=== PATIENT | male | born 1970 | race Caucasian/White ===

== ENCOUNTER 2020-05-23 09:27 | Outpatient (CLI) | payer OTHER, SELFPAY | END 2020-05-23 09:28 | disposition home or self-care (01) | LOC: ANHCOVIDVC 09:27 | PROVIDERS: PCP Internal Medicine | DX: Z23 Encounter for immunization (principal) | CPT/HCPCS: 0001A; 91300 ==

== ENCOUNTER 2020-06-13 09:49 | Outpatient (CLI) | payer OTHER, SELFPAY | END 2020-06-13 09:50 | disposition home or self-care (01) | PROVIDERS: PCP Internal Medicine | DX: Z23 Encounter for immunization (principal) | CPT/HCPCS: 0002A; 91300 ==

== ENCOUNTER 2023-09-26 17:05 | Emergency (ER) | payer BC, SELFPAY ==
[2023-09-26 17:21] VITALS: BP 140/82; PULSE 85; RESP 16; TEMP 36.9; O2SAT 100
--- NOTE | 2023-09-26 17:47 | ED.GENADULT ---
HPI - General Adult General Chief complaint: Abdominal Pain Stated complaint: Abdominal Pain Time Seen by Provider: 09/26/23 17:36 Source: patient, RN notes reviewed and old records reviewed Mode of arrival: ambulatory Limitations: no limitations History of Present Illness HPI narrative: 53 year old male who presents to [facility] with complaints of upper epigastric burning for the past month with no nausea or vomiting. Patient reports that since about 0400 today he has had increased epigastric burning and has been taking Pepto Bismol without relief of his symptoms. Patient reports that he has been under a lot of stress lately; his was just recently diagnosed with cancer andthey have down syndrome child at home. Patient denies any shortness of breath or any radiation of pain or any episodes of diaphoresis.Patient is daily tobacco user. MD complaint: abdominal epigastric burning Onset (ago): month(s) (1 month with increased symptoms today.) Location: abdomen (epigastric) Radiation: non-radiation Severity scale (1-10): 4 Quality: burning Treatments prior to arrival: other (Pepto Bismol) Related Data Allergies Allergy/AdvReac Type Severity Reaction Status Date / Time No Known Allergies Allergy Verified 06/13/20 09:52 Review of Systems Review of Systems: CONSTITUTIONAL: Denies fever, chills, or sweats. ENT: Denies rhinorrhea, congestion, sore throat, or otalgia. CARDIOVASCULAR: Denies chest pain, palpitations, or edema. RESPIRATORY: Denies cough or dyspnea. GASTROINTESTINAL: Reports epigastric abdominal pain described as burning, no, nausea, vomiting, diarrhea. GENITOURINARY: Denies dysuria or hematuria. SKIN: Denies rash or itching. MUSCULOSKELETAL: Denies back pain, joint pain, or myalgia. 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 There is no relevant family history pertinent to the presenting complaint Exam Narrative: GENERAL: Well-appearing, well-nourished, and in no acute distress.anxious HEAD: Normocephalic, atraumatic. EYES: PERRLA, conjunctivae clear, and EOMI. ENT: Nares clear. Mucous membranes moist. Oropharynx without edema, erythema, or lesions. Tonsils not enlarged and without exudate. NECK: Supple. No lymphadenopathy CHEST: Speaks in full sentences. No respiratory distress., SAO2 100% on room air HEART: Regular rate and rhythm. denies any palpitations episodes of diaphoresis or any nausea or vomiting ABDOMEN: Soft, flat, nondistended. No guarding, rebound tenderness, or rigid. No pulsatilla masses. Bowel sounds present in all four quadrants. No organomegaly. Negative Gregory?s sign. No periumbilical tenderness. No Supra public tenderness or distension. Good femoral pulses bilaterally. No hernia noted. No scars or surface trauma, epigastric burning reported SKIN: Warm, dry, no rash. NEURO:? Alert and oriented x3. PSYCH: Normal mood and affect Course Course Emergency Course: Patient is aware of diagnosis, understands and agrees to treatment plan.? Anticipatory guidance given.? Patient agrees to follow-up as directed and is aware of reasons to seek care at the emergency department. Portions of this record may have been created with voice recognition software Level of Care: [facility] Care Visit
== END 2023-09-26 18:15 | disposition home or self-care (01) ==
PROVIDERS: Emergency Provider Registered Nurse
DX: K21.9 Gastro-esophageal reflux disease without esophagitis (principal); F17.210 Nicotine dependence, cigarettes, uncomplicated
CPT/HCPCS: 99213; G0463